=== PATIENT | male | born 1930 | race Caucasian/White ===

== ENCOUNTER 2016-12-28 16:26 | Emergency (ER) | payer OTHER ==
[~2016-12-28] VITALS: Ht 170.2 cm; Wt 80.0 kg
[~2016-12-28 16:26] MED LIST: ASPIR-LOW81 MG PO; DAILY VALUE1 EACH PO; HYDROCHLOROTH12.5 M3 PO; HYDROCHLOROTHIA25 MG PO; LEXAPRO5 MG PO; LOPERAMIDE2 M1 PO; LORAZEPAM0.5 MG PO; LOSARTAN POTAS100 MG PO; MEMANTINE HCL10 MG PO; QUETIAPINE FUMA50 MG PO; SEROQUEL50 MG PO; TYLENOL REGULA325 MG PO; VITAMIN B122500 MCG PO; ZOCOR40 MG PO
[2016-12-28 17:04] LABS: HEMATOCRIT 38.6 % (38.0-50.0); MCH 31.7 PG (29.0-34.0); MCHC 34.2 G/DL (30.0-36.0); MCV 92.8 FL (86-99); MEAN PLAT.VOLUME 9.7 uM^3 (9.0-12.4); PLATELET COUNT 116 K/uL (156-360); RBC DIS.WIDTH-CV 13.4 % (11.8-14.6); RBC DIS.WIDTH-SD 45.6 % (39-53); RED BLOOD COUNT 4.16 M/uL (4.00-5.50); WHITE BLOOD COUNT 5.8 K/uL (4.1-10.2)
[2016-12-28 17:13] LABS: CHLORIDE 109 mEq/L (99-109); POTASSIUM 4.3 mEq/L (3.7-5.4); SODIUM 145 mEq/L (136-147)
[2016-12-28 17:15] LABS: GLUCOSE 95 mg/dL (70-99)
[2016-12-28 17:16] LABS: ANION GAP 7 MEQ/L (2-14)
[2016-12-28 17:17] LABS: TOTAL BILIRUBIN 0.6 mg/dL (0.0-1.0)
[2016-12-28 17:18] LABS: ALKALINE PHOSPHATASE 65 IU/L (3-129)
[2016-12-28 17:20] LABS: GFR ESTIMATE (CALCULATED) > 59 mL/min/; UREA NITROGEN (BUN) 25 mg/dL (9-23)
[2016-12-28 18:20] LABS: ADD MIUA? NO; BILIRUBIN NEGATIVE; BLOOD NEGATIVE; COLOR YELLOW ((YELLOW)); GLUCOSE (STRIP) NEGATIVE; KETONES NEGATIVE; LEUKOCYTES NEGATIVE; NITRITE NEGATIVE; PROTEIN (STRIP) 30; SPECIFIC GRAVITY 1.025 (1.000-1.030)
[2016-12-28 21:09] VITALS: BP 121/62
== END 2016-12-28 21:24 | disposition home or self-care (01) ==
LOC: EME 16:26
PROVIDERS: Emergency Medicine
DX: F03.91 Unspecified dementia, unspecified severity, with behavioral disturbance (principal); S00.81XA Abrasion of other part of head, initial encounter; E78.5 Hyperlipidemia, unspecified; I10 Essential (primary) hypertension
CPT/HCPCS: 80053; 81003; 85027; 99281; 99284; J1630; J2250

== ENCOUNTER 2017-01-24 09:35 | Emergency (ER) | payer OTHER ==
[~2017-01-24] VITALS: Ht 172.7 cm; Wt 71.4 kg
[2017-01-24 13:07] VITALS: BP 154/72
== END 2017-01-24 13:15 | disposition home or self-care (01) ==
LOC: EME 09:35
DX: S00.12XA Contusion of left eyelid and periocular area, initial encounter (principal); S00.212A Abrasion of left eyelid and periocular area, initial encounter; S09.90XA Unspecified injury of head, initial encounter; W01.0XXA Fall on same level from slipping, tripping and stumbling without subsequent striking against object, initial encounter; Y92.199 Unspecified place in other specified residential institution as the place of occurrence of the external cause; F03.90 Unspecified dementia, unspecified severity, without behavioral disturbance, psychotic disturbance, mood disturbance, and anxiety; I10 Essential (primary) hypertension; E78.5 Hyperlipidemia, unspecified; Z79.82 Long term (current) use of aspirin
CPT/HCPCS: 70450; 70486; 99281; 99284

== ENCOUNTER 2017-05-17 10:38 | Emergency (ER) | payer OTHER ==
[~2017-05-17] VITALS: Ht 177.8 cm; Wt 61.4 kg
[2017-05-17 11:37] LABS: EOSINOPHIL (%) 0.6 % (0-5); EOSINOPHIL COUNT 0.1 K/uL (0-0.3); IMMATURE GRANULOCYTE (%) 0.5 % (0.0-0.7); INSTRUMENT ABS NEUTROPHIL CT 6.9 K/uL; MCHC 34.1 G/DL (30.0-36.0); MCV 90.7 FL (86-99); MEAN PLAT.VOLUME 9.8 uM^3 (9.0-12.4); MONOCYTE (%) 5.7 % (3-12); MONOCYTE COUNT 0.5 K/uL (0-0.8); NEUTROPHIL (%) 81.2 % (45-76); NEUTROPHIL COUNT 6.9 K/uL (1.8-6.4); PLATELET COUNT 113 K/uL (156-360); RBC DIS.WIDTH-CV 13.4 % (11.8-14.6); RBC DIS.WIDTH-SD 45.1 % (39-53); RED BLOOD COUNT 4.52 M/uL (4.00-5.50); WHITE BLOOD COUNT 8.5 K/uL (4.1-10.2)
[2017-05-17 11:44] LABS: ADD MIUA? YES; BILIRUBIN NEGATIVE; BLOOD SMALL; COLOR YELLOW ((YELLOW)); GLUCOSE (STRIP) NEGATIVE; KETONES 5; LEUKOCYTES NEGATIVE; NITRITE NEGATIVE; PROTEIN (STRIP) 100; SPECIFIC GRAVITY 1.014 (1.000-1.030); UROBILINOGEN 0.2 MG/DL (0.2-1.0)
[2017-05-17 11:46] LABS: CHLORIDE 102 mEq/L (99-109); POTASSIUM 4.3 mEq/L (3.7-5.4); SODIUM 139 mEq/L (136-147)
[2017-05-17 11:47] LABS: GLUCOSE 96 mg/dL (70-99)
[2017-05-17 11:49] LABS: ANION GAP 11 MEQ/L (2-14)
[2017-05-17 11:51] LABS: GFR ESTIMATE (CALCULATED) > 59 mL/min/
[2017-05-17 11:51] LABS: BACTERIA NONE SEEN /HPF; EPITHELIAL CELLS NONE SEEN /HPF; HYALINE CASTS 0-5 /LPF; MUCUS TRACE /LPF; RED BLOOD CELLS 0-5 /HPF (0-5); UCUL ADDED? NO; WHITE BLOOD CELLS 0-5 /HPF (0-5)
[2017-05-17 11:52] LABS: UREA NITROGEN (BUN) 14 mg/dL (9-23)
[2017-05-17 11:59] LABS: TROP-I INTERPRETATION NEGATIVE; TROPONIN-I < 0.01 ng/mL (0.0-0.30)
[2017-05-17] MEDS ORDERED: BUSPAR7.5 MG PO (12:21)
[2017-05-17] MEDS ORDERED: LACTINEX CHEWA1 EACH PO (12:23)
[2017-05-17] MEDS ORDERED: QUESTRAN PACKET4 GM PO (12:23)
[2017-05-17] MEDS ORDERED: MELATONIN5 M1 PO (12:24)
[2017-05-17] MEDS ORDERED: NAMENDA10 MG PO (12:25)
[2017-05-17] MEDS ORDERED: SEROQUEL12.5 MG PO (12:25)
[2017-05-17] MEDS ORDERED: MIRTAZAPINE7.5 MG PO (12:25)
[2017-05-17 15:27] VITALS: BP 128/65
== END 2017-05-17 15:49 | disposition home or self-care (01) ==
LOC: EME 10:38
PROVIDERS: Emergency Medicine
DX: G30.9 Alzheimer's disease, unspecified (principal); F02.80 Dementia in other diseases classified elsewhere, unspecified severity, without behavioral disturbance, psychotic disturbance, mood disturbance, and anxiety; I10 Essential (primary) hypertension; E78.5 Hyperlipidemia, unspecified; Z79.82 Long term (current) use of aspirin
CPT/HCPCS: 70450; 71010; 80048; 81003; 84484; 85025; 93005

== ENCOUNTER 2017-06-15 20:57 | Emergency (ER) | payer OTHER ==
[~2017-06-15] VITALS: Ht 177.8 cm; Wt 55.0 kg
[~2017-06-15 20:57] MED LIST changes: +BUSPAR7.5 MG PO; +LACTINEX CHEWA1 EACH PO; +MELATONIN5 M1 PO; +MIRTAZAPINE7.5 MG PO; +NAMENDA10 MG PO; +QUESTRAN PACKET4 GM PO; +SEROQUEL12.5 MG PO
[2017-06-16 00:54] VITALS: BP 132/75
== END 2017-06-16 01:08 | disposition home or self-care (01) ==
LOC: EME 20:57
PROC: 3E0234Z Introduction of Serum, Toxoid and Vaccine into Muscle, Percutaneous Approach (ICD-10-PCS; principal; 2017-06-15)
DX: S06.6X0A Traumatic subarachnoid hemorrhage without loss of consciousness, initial encounter (principal); W01.10XA Fall on same level from slipping, tripping and stumbling with subsequent striking against unspecified object, initial encounter; R29.6 Repeated falls; G30.9 Alzheimer's disease, unspecified; F02.81 Dementia in other diseases classified elsewhere, unspecified severity, with behavioral disturbance; E78.5 Hyperlipidemia, unspecified; I10 Essential (primary) hypertension; Z79.82 Long term (current) use of aspirin
CPT/HCPCS: 70450; 99281; 99284

== ENCOUNTER 2017-08-04 19:37 | Inpatient (IN) | payer OTHER ==
[~2017-08-04] VITALS: Ht 182.9 cm; Wt 59.8 kg
[2017-08-04 22:08] LABS: EOSINOPHIL (%) 0.2 % (0-5); HEMATOCRIT 39.1 % (38.0-50.0); IMMATURE GRANULOCYTE (%) 0.5 % (0.0-0.7); IMMATURE GRANULOCYTE COUNT 0.1 K/uL; INSTRUMENT ABS NEUTROPHIL CT 9.5 K/uL; LYMPHOCYTE COUNT 0.7 K/uL (1.0-2.8); MCH 31.5 PG (29.0-34.0); MCHC 34.5 G/DL (30.0-36.0); MCV 91.1 FL (86-99); MEAN PLAT.VOLUME 9.4 uM^3 (9.0-12.4); MONOCYTE (%) 3.9 % (3-12); MONOCYTE COUNT 0.4 K/uL (0-0.8); NEUTROPHIL (%) 88.6 % (45-76); NEUTROPHIL COUNT 9.5 K/uL (1.8-6.4); PLATELET COUNT 115 K/uL (156-360); RBC DIS.WIDTH-CV 13.8 % (11.8-14.6); RBC DIS.WIDTH-SD 46.4 % (39-53); RED BLOOD COUNT 4.29 M/uL (4.00-5.50); WHITE BLOOD COUNT 10.7 K/uL (4.1-10.2)
[2017-08-04 22:14] LABS: INTER. NORMALIZED RATIO 1.1; PROTHROMBIN TIME 11.9 SEC (10.2-12.9)
[2017-08-04 22:17] LABS: PTT 29.1 SEC (25-37)
[2017-08-04 22:27] LABS: CHLORIDE 104 mEq/L (99-109)
[2017-08-04 22:28] LABS: POTASSIUM 4.1 mEq/L (3.7-5.4); SODIUM 141 mEq/L (136-147)
[2017-08-04 22:30] LABS: GLUCOSE 129 mg/dL (70-99)
[2017-08-04 22:31] LABS: ANION GAP 10 MEQ/L (2-14)
[2017-08-04 22:32] LABS: TOTAL BILIRUBIN 0.6 mg/dL (0.0-1.0)
[2017-08-04 22:33] LABS: ALKALINE PHOSPHATASE 74 IU/L (3-129); GFR ESTIMATE (CALCULATED) > 59 mL/min/
[2017-08-04 22:35] LABS: UREA NITROGEN (BUN) 21 mg/dL (9-23)
[2017-08-05 08:00] VITALS: BP 136/72
[2017-08-05] MEDS ORDERED: ACIDOPHILUS1 EAC3 PO (09:05)
[2017-08-05] MEDS ORDERED: ESCITALOPRAM OX20 MG PO (09:06)
[2017-08-05] MEDS ORDERED: LACTINEX CHEWA1 EACH PO (09:07)
[2017-08-05] MEDS ORDERED: ACETAMINOPHEN325 M1 PO ×2 (09:08→09:15)
[2017-08-05] MEDS ORDERED: MELATONIN5 M1 PO (09:09)
[2017-08-05] MEDS ORDERED: MIRTAZAPINE15 MG PO (09:11)
[2017-08-05] MEDS ORDERED: QUETIAPINE FUMA25 MG PO (09:12)
[2017-08-05] MEDS ORDERED: QUETIAPINE FUMA50 MG PO (09:13)
[2017-08-05] MEDS ORDERED: LOPERAMIDE2 M1 PO (09:14)
[2017-08-05 16:43] VITALS: BP 161/92
[2017-08-06] VITALS (7 sets, daily range): BP systolic 141–200; BP diastolic 71–93
[2017-08-07 07:50] VITALS: BP 189/79
[2017-08-07] MEDS ORDERED: MORPHINE CON20 MG/M1 BC (09:35)
[2017-08-07] MEDS ORDERED: CLONIDINE1 EACH TD (09:35)
[2017-08-07 11:33] VITALS: BP 124/69
== END 2017-08-07 12:15 | disposition short-term general hospital (02) | DRG 86 ==
LOC: EME 19:37 → EDOF 08-05 01:40 → 5EAST 08-05 01:40 → ENRESERV 08-05 02:00 → 5EAST 08-05 16:29
PROVIDERS: Emergency Medicine
DX: S06.5X0A Traumatic subdural hemorrhage without loss of consciousness, initial encounter (principal); F05 Delirium due to known physiological condition; Z68.1 Body mass index [BMI] 19.9 or less, adult; S12.030A Displaced posterior arch fracture of first cervical vertebra, initial encounter for closed fracture; S12.190A Other displaced fracture of second cervical vertebra, initial encounter for closed fracture; S12.111A Posterior displaced Type II dens fracture, initial encounter for closed fracture; S06.4X0A Epidural hemorrhage without loss of consciousness, initial encounter; W05.0XXA Fall from non-moving wheelchair, initial encounter; E78.5 Hyperlipidemia, unspecified; H90.5 Unspecified sensorineural hearing loss; G30.8 Other Alzheimer's disease; F02.80 Dementia in other diseases classified elsewhere, unspecified severity, without behavioral disturbance, psychotic disturbance, mood disturbance, and anxiety; I10 Essential (primary) hypertension; Z51.5 Encounter for palliative care; Z66 Do not resuscitate; G93.89 Other specified disorders of brain; S00.03XA Contusion of scalp, initial encounter; G47.00 Insomnia, unspecified; S00.12XA Contusion of left eyelid and periocular area, initial encounter; S09.8XXA Other specified injuries of head, initial encounter; S06.0X0A Concussion without loss of consciousness, initial encounter; Y92.129 Unspecified place in nursing home as the place of occurrence of the external cause; Z88.8 Allergy status to other drugs, medicaments and biological substances; Z82.3 Family history of stroke; Z87.891 Personal history of nicotine dependence; Z79.82 Long term (current) use of aspirin; Z82.49 Family history of ischemic heart disease and other diseases of the circulatory system
CPT/HCPCS: 70450; 71010; 72125; 80053; 85025; 85610; 85730; 86850; 86900; 86901; 93005; 99281; 99285; J2270; J2405; J7030